=== PATIENT | male | born 2000 | race African-American/Black ===

== ENCOUNTER 2021-08-11 09:10 | Emergency (ER) | payer MEDICAID ==
[~2021-08-11] VITALS: Ht 185.4 cm; Wt 95.3 kg
[2021-08-11 09:12] VITALS: BP 129/57
--- NOTE | 2021-08-11 09:23 | NUR ---
DR DAVIDSON EXAMINING PT
--- NOTE | 2021-08-11 09:23 | NUR ---
DR. DAVIDSON AT FOR FURTHER EVALUATION.
--- NOTE | 2021-08-11 09:25 | NUR ---
21 Y/O MALE [facility] PREBOOK C/O LEFT SHOULDER PAIN CONSTANT NON-RADIATING [id number]. PT DENIES SEEING A PCP OR TAKING RX PRIOR TO COMING. DENIES TRAUMA/INJURY. DENIES FEVER/CHILLS. DENIES N/V/D. DENIES PMH NKA
--- NOTE | 2021-08-11 09:25 | NUR ---
Note efremelizabeth in EDM - 08/11/21 at 0944 by [email or web address] 21 Y/O MALE [employer] PRE[employer] C/O LEFT SHOULDER PAIN CONSTANT NON-RADIATING [id number]. PT DENIES SEEING A PCP OR TAKING RX PRIOR TO COMING. DENIES TRAUMA/INJURY. DENIES FEVER/CHILLS. DENIES N/V/D. DENIES PMH NKA
[2021-08-11] MEDS ORDERED: KETOROLAC 60 MG/2 ML VIAL IM ONE (09:30)
[2021-08-11] MEDS ORDERED: IBUP-2213 PO (09:34)
[2021-08-11 09:47] VITALS: BP 129/57
--- NOTE | 2021-08-11 09:48 | NUR ---
PATIENT BIB POLICE DEPT. PATIENT EXAMINED BY DR. DAVIDSON. PATIENT MEDICALLY CLEARED AND RELEASED IN CUSTODY IN STABLE CONDITION. ORIGINAL PRE-BOOK FORM GIVEN TO OFFICER [employer]GARD.
== END 2021-08-11 09:47 | disposition home or self-care (01) ==
LOC: MED 09:10
DX: Z02.89 Encounter for other administrative examinations (principal); M25.511 Pain in right shoulder
CPT/HCPCS: 96372; 99283; J1885